=== PATIENT | male | born 1980 | race Caucasian/White ===

== ENCOUNTER 2019-01-01 20:59 | Emergency (ER) | payer SELFPAY ==
[2019-01-01] MEDS ORDERED: IBUPROFEN 400 MG TABLET PO ONE (21:09)
--- NOTE | 2019-01-01 21:13 | Emergency Department Record ---
History of Present Illness - General Chief complaint: Extremity Problem Stated complaint: R HAND INJURY Time Seen by Provider: 01/01/19 21:09 Source: Patient Mode of Arrival: Ambulatory Limitations: No limitations - History of Present Illness Initial comments: 38 yo male presents to ED for evaluation following an injury to the right hand. Patient reports that he was served with a PPO approximately 30 minutes ago, became angry, and punched a car window resulting in swelling and pain to the dorsal-lateral aspect of the right hand. Patient reports FROM on examination, denies weakness to the fingers/hand/wrist. Patient denies other injury on examination. MD Complaint: Extremity pain Onset/Timin -: Minutes(s) Location: Right, Hand History of Same: No -: Yes Arthralgia Quality: Aching Consistency: Constant Improves with: Nothing Worsens with: Nothing Associated Symptoms: Denies other symptoms - Related Data Home Medications Medication Instructions Recorded Confirmed Last Taken Hydrocodone/Acetaminophen [[place] 1 each PO BID 01/01/19 01/01/19 01/01/19 7.5-325 Tablet] Allergies Allergy/AdvReac Type Severity Reaction Status Date / Time No Known Drug Allergies Allergy Verified 01/01/19 21:27 Review of Systems Constitutional: Denies: Chills, Fever, Malaise, Night sweats Eyes: Denies: Eye discharge, Eye pain ENT: Denies: Congestion, Ear pain, Epistaxis Respiratory: Denies: Cough, Dyspnea Cardiovascular: Denies: Chest pain, Dyspnea on exertion Endocrine: Denies: Fatigue, Heat or cold intolerance Gastrointestinal: Denies: Abdominal pain, Nausea, Vomiting Genitourinary: Denies: Incontinence, Retention Musculoskeletal: Reports: Arthralgia. Denies: Back pain, Gout Skin: Reports: Other (Numerous small lacerations from punching a glass window). Denies: Bruising, Change in color Neurological: Denies: Abnormal gait, Confusion, Headache, Seizure Psychiatric: Denies: Anxiety Hematological/Lymphatic: Denies: Anemia, Blood Clots Past Medical History - SOCIAL HISTORY Smoking Status: Never smoker - RESPIRATORY Hx Respiratory Disorders: No - CARDIOVASCULAR Hx Cardio Disorders: No - NEURO Hx Neuro Disorders: Yes Hx Headaches: Yes - GI Hx GI Disorders: No - Hx Genitourinary Disorders: No - ENDOCRINE Hx Endocrine Disorders: No - MUSCULOSKELETAL Hx Musculoskeletal Disorders: No - PSYCH Hx Psych Problems: No - HEMATOLOGY/ONCOLOGY Hx Hematology/Oncology Disorders: No Family Medical History Hx Heart Disease: Grandparents Hx HTN: Grandparents Hx Stroke: Grandparents Physical Exam - General General Appearance: Alert, Oriented x3, Cooperative, Mild distress Limitations: No limitations - Head Head exam: Atraumatic, Normocephalic, Normal inspection Head exam detail: negative: Abrasion, Contusion, Reed's sign, General tenderness, Hematoma, Laceration - Eye Eye exam: Normal appearance. negative: Conjunctival injection, Periorbital swelling, Periorbital tenderness, Scleral icterus - ENT Ear exam: negative: Auricular hematoma, Auricular trauma Nasal Exam: negative: Active bleeding, Discharge, Dried blood, Foreign body Mouth exam: negative: Drooling, Laceration, Muffled voice, Tongue elevation - Neck Neck exam: Normal inspection. negative: Meningismus, Tenderness - Respiratory Respiratory exam: Normal lung sounds bilaterally. negative: Rales, Respiratory distress, Rhonchi, Stridor - Cardiovascular Cardiovascular Exam: Regular rate, Normal rhythm, Normal heart sounds Peripheral Pulses: 3+: Radial (R) - GI/Abdominal GI/Abdominal exam: Soft. negative: Rebound, Rigid, Tenderness - Rectal Rectal exam: Deferred - exam: Deferred - Extremities Extremities exam: Full ROM, Tenderness, Other (STS to the dorsal-lateral aspect of the right hand, numerous superficial abrasions present to the dorsal aspect of the patient's fingers, FROM, strong radial pulse, no pain with ROM of the hand, finger, or wrist.). negative: Pedal edema - Back Back exam: Denies: CVA tenderness (R), CVA tenderness (L) - Neurological Neurological exam: Alert, Normal gait, Oriented X3 - Psychiatric Psychiatric exam: Normal affect, Normal mood - Skin Skin exam: Normal color. negative: Abrasion Type of lesion: negative: abrasion Course - Reevaluation(s) Reevaluation #1: 01/01/19 21:27 Right hand: Comminuted, minimally displaced fracture base 5th metacarpal Patient was updated on his radiograph results, will place in ulnar-gutter splint with instructions to follow-up with Dr. Zhang for follow-up. Patient verbalizes understanding of all instructions, appears stable for discharge at this time. Disposition Disposition: Discharge Clinical Impression: Closed fracture of 5th metacarpal Qualifiers: Encounter type: initial encounter Metacarpal location: base Fracture alignment: nondisplaced Laterality: right Qualified Code(s): S62.346A - Nondisplaced fracture of base of fifth metacarpal bone, right hand, initial encounter for closed fracture Disposition: Home, Self-Care Condition: (2) Stable Instructions: Boxer Fracture (ED) Additional Instructions: Return to ED if your symptoms worsen or if you have any concerns. Ibuprofen as directed. Follow-up with Dr. Zhang in 3-5 days as directed. Referrals: LYNNE ZHANG M.D. [MEDICAL DOCTOR] - Forms: Patient Portal Access Time of Disposition: 21:29 Quality - Quality Measures Quality Measures: N/A - Blood Pressure Screening Does Patient Have Any of the Following: No Blood Pressure Classification: Hypertensive Reading Systolic Measurement: 151 Diastolic Measurement: 114 Screening for High Blood Pressure: < First Hypertensive BP, F/U Documented > [[id number]] First Hypertensive Follow-up Interventions: Referral to alternative/primary care provider.
--- NOTE | 2019-01-03 07:22 | RADIOLOGY REPORT ---
EXAM: RIGHT HAND, THREE VIEWS HISTORY: RIGHT HAND INJURY. TECHNIQUE: Three views of the right hand were obtained. FINDINGS: There is a multiply comminuted fracture of the base of the fifth metacarpal with extension into the fifth carpal metacarpal joint. Fairly pronounced surrounding soft tissue swelling is present, but no additional osseous injury is seen. No radiopaque foreign bodies are identified. IMPRESSION: COMMINUTED INTRAARTICULAR FRACTURE OF THE BASE OF THE FIFTH METACARPAL. JOB NUMBER: [id number] [facility]
== END 2019-01-01 22:01 | disposition home or self-care (01) ==
LOC: ER 20:59
DX: S62.316A Displaced fracture of base of fifth metacarpal bone, right hand, initial encounter for closed fracture (principal); W22.8XXA Striking against or struck by other objects, initial encounter
CPT/HCPCS: 99283; 99284